=== PATIENT | male | born 1960 | race Caucasian/White ===

== ENCOUNTER → 2018-03-31 13:16 | Outpatient (CLI) | payer OTHER, SELFPAY ==
--- NOTE | 2018-03-31 14:57 | PM.TREADMILL ---
Cardiac Stress Test Report Referral & Results Date Patient Seen: 03/31/18 Requesting provider: Nhan Schumacher Rest ECG: Resting PACs and PVCs including ventricular bigeminy and trigeminy Procedure Note: Today following both written and verbal informed consent the patient was exercised according to a standard Regis protocol patient went for a total of 7 min 4 sec achieving a maximum heart rate of 133 maximum systolic blood pressure of 180. This is approximately 10.1 METS. Exercise was terminated at this point because of severe dyspnea (with normal oxygen saturation). Patient was also given Cardiolite through a previously started Hep-Lock IV by the nuclear licensing engineer approximately 1 minute prior to the cessation of exercise. No ST segment changes were identified. Multiple PACs and PVCs identified. With increased heart rate PVCs became less frequent PACs persisted. There were runs of ventricular bigeminy and trigeminy arrest. Functional aerobic impairment rated about 15% sedentary scale due to dyspnea Normal oxygen saturations Impression: No ECG evidence of ischemia Dysrhythmia as above Limited exercise capacity due to dyspnea Perfusion imaging will be reported separately Please note: Actual ECG tracings can be found in the PACS system.
--- NOTE | 2018-04-02 08:04 | DI.NM.S_ITS ---
DATE OF SERVICE: 03/31/2018 PROCEDURE: Exercise perfusion study. INDICATIONS: Patient has paroxysmal atrial fibrillation, on flecainide, history of LV dysfunction in the past. Exercise perfusion study was scheduled for risk stratification as patient is on flecainide. RADIOPHARMACEUTICAL: 25.3 mCi technetium-99 Myoview IV was injected in stress and 23.2 mCi technetium-99m Myoview IV was injected at rest. CARDIAC STRESS: Patient underwent exercise perfusion study under the supervision of an attending staff. He walked on Regis protocol for 7 minutes 4 seconds and achieved peak heart rate of 133, which was 83% of target heart rate. Baseline blood pressure 118/80. Maximum blood pressure 180/100 with hypertensive blood pressure response. Patient had shortness of breath during exercise. Baseline rhythm was sinus with ventricular bigeminies. During exercise, PVCs disappeared. There were no significant ischemic changes. There were occasional PACs. RAW DATA: There was increased subdiaphragmatic activity. Patient's weight is 297 pounds. GATED STUDY: Resting LV ejection fraction 57% without any significant wall motion abnormalities; however, stress LV ejection fraction was not reliable. Resting end-diastolic volume 152 mL. TIDS ratio 0.90, which is within normal limits. Lung/heart ratio was 0.43, which was within normal limits. MYOCARDIAL PERFUSION SCAN: Stress supine, resting supine images revealed moderate-sized moderately decreased perfusion of inferior wall, inferior apex, and distal inferolateral wall, which got significantly resolved during prone images, suggestive of diaphragmatic tissue attenuation artifact. In prone images, I don't see any convincing ischemia infarction pattern. CONCLUSION: I will call this study likely a normal myocardial perfusion study with evidence of diaphragmatic tissue attenuation artifact which got resolved during prone images. Patient walked on Regis protocol for 7 minutes 4 seconds and achieved 83% of target heart rate with hypertensive blood pressure response. Resting LVS ejection fraction 57%. Had resting ventricular bigeminy which got resolved during exercise. Nhan Hernandez - STUDENT TEACHER/fn/kv doc#: [id number]/job#: [id number] dd: 04/01/2018 12:46:00 dt: 04/01/2018 14:56:00 DICTATING MD/COPIES TO: Maria Elena Evangelista MD COPIES MNE: SIMEON
== END ==
PROVIDERS: PCP Family Medicine; Visit Provider Internal Medicine Cardiovascular Disease
DX: I48.0 Paroxysmal atrial fibrillation (principal); R06.00 Dyspnea, unspecified
CPT/HCPCS: 78452; 93016; 93017; 93018; A9502

== ENCOUNTER 2024-06-27 14:45 | Inpatient (IN) | payer MEDICARE, OTHER, SELFPAY ==
[2024-06-27] VITALS (13 sets, daily range): BP systolic 120–147; BP diastolic 58–82; PULSE 54–70; RESP 16–20; TEMP 36.6–37; O2SAT 94–99; BMI 42.7
[2024-06-27 15:11] LABS: Add Manual Diff / Slide Review NO; Basophils Absolute Auto 100 /uL (0-100); Basophils Percent Auto 0.4 % (0-2); Eosinophils Absolute Auto 0 /uL (0-450); Eosinophils Percent Auto 0.4 % (2-4); Hematocrit 47.9 % (41-53); Hemoglobin 16.3 g/dL (13.5-17.5); Lymphocytes Absolute Auto 1800 /uL (1100-4500); Lymphocytes Percent Auto 13.9 % (25-40); Mean Corpuscular HGB Conc 34.1 % (30-36); Mean Corpuscular Hemoglobin 30.6 PG (26-34); Mean Corpuscular Volume 89.7 fL (80-100); Monocytes Absolute Auto 1000 /uL (0-900); Monocytes Percent Auto 7.3 % (3-14); Neutrophils Absolute Auto 10200 /uL (1500-7000); Platelet Count 206 X10^3/uL (150-400); Red Blood Cell Count 5.33 X10^6/uL (4.5-5.9); White Blood Cell Count 13.1 X10^3/uL (4.5-11.0)
[2024-06-27 15:27] LABS: Alanine Aminotransferase 36 IU/L (<50); Albumin 4.4 g/dL (3.5-5.0); Albumin Globulin Ratio 1.4 (1.0-2.8); Alkaline Phosphatase 87 U/L (38-126); Aspartate Aminotransferase 29 IU/L (17-59); BUN Creatinine Ratio 12.3 (6-22); Bilirubin Total 0.8 mg/dL (0.2-1.3); Blood Urea Nitrogen 14 mg/dL (9-20); Carbon Dioxide 25 mmol/L (22-32); Chloride 104 mmol/L (98-107); Estimated Glomerular Filt Rate > 60 mL/min (>60); Globulin 3.2 g/dL (1.7-4.1); Glucose 98 mg/dL (80-110); HEMOLYSIS < 15 (0-50); Lipase 52 U/L (23-300); Potassium 4.2 mmol/L (3.4-5.1); Sodium 136 mmol/L (137-145); Total Protein 7.6 g/dL (6.3-8.2)
--- NOTE | 2024-06-27 17:41 | DI.CT.S_ITS ---
PROCEDURE: CT ABDOMEN PELVIS W CON INDICATIONS: Right lower quadrant TECHNIQUE: After the administration of intravenous contrast, axial sections acquired from the lung bases to the pubic symphysis. Coronal and sagittal reformats were performed. For radiation dose reduction, the following was used: automated exposure control, adjustment of mA and/or kV according to patient size. COMPARISON: None. FINDINGS: Image quality: Diagnostic. Lower Chest: No significant findings. ABDOMEN: Liver: No solid mass. The liver is enlarged and demonstrates diffuse fatty infiltration. Gallbladder: No radiopaque gallstones or wall thickening. Biliary ducts: No biliary dilation. Pancreas: No ductal dilation. Spleen: Size is within normal limits. Adrenal Glands: No adrenal nodules. Kidneys and Ureters: No hydronephrosis. No solid mass. No complex renal cystic lesion which requires follow up. Bowel and peritoneum: The appendix is abnormal, with a caliber of 13 mm. Surrounding inflammatory change can be seen. There is a potential appendicoliths. No findings of perforation or abscess can be seen. No significant free fluid can be seen. No dilated loops of small bowel are seen. No significant colonic abnormality is seen. Ventral Wall: No significant ventral hernia. Abdominal Nodes: No retroperitoneal or mesenteric adenopathy by size criteria. Vessels: Aorta and inferior vena cava are normal in size. Atherosclerotic calcification is noted. PELVIS: Pelvic Organs: Unremarkable. Bladder: No bladder wall thickening, accounting for underdistention. Pelvic Nodes: No enlarged lymph nodes. Miscellaneous: Mild bilateral fat containing inguinal hernias are seen. Bones: No aggressive osseous abnormality. Age-appropriate bony degenerative changes are seen. IMPRESSION: Acute appendicitis, without findings of perforation or abscess. Additional findings: Enlarged, fatty infiltrated liver Mild bilateral fat containing inguinal hernias Note: Case discussed by telephone with Dr. Albright at 6:43 p.m. [place] time on June 27, 2024. Dictated by: Umer Tam M.D. on 06/27/2024 at 17:40 Approved by: Umer Tam M.D. on 06/27/2024 at 17:43
[2024-06-27] MEDS: MORPHINE 4 MG/ML INJ IV (18:12)
[2024-06-27] MEDS: ONDANSETRON 4 MG/2 ML INJ IV (18:12)
[2024-06-27 18:35] LABS: Bacteria Urine Occasional (0-1); Culture Indicated Urine Cult Not Indicated; Mucus Urine 1+ (Negative); RBC Urine 0-1/HPF (0-5/HPF); Squamous Epithelial Cell Urine 0-1 /HPF (0-5/HPF); Urine Volume 10mL (spun); WBC Urine 0-1/HPF (0-5/HPF)
--- NOTE | 2024-06-27 18:37 | EKG_ITS ---
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
--- NOTE | 2024-06-27 18:50 | ED.GENADULT ---
HPI - General Adult General Chief complaint: Abdominal Pain Stated complaint: abd px Time Seen by Provider: 06/27/24 17:41 Source: patient Mode of arrival: Family Vehicle History of Present Illness HPI narrative: 63-year-old male who is here for evaluation of just over 24 hours of right lower quadrant abdominal pain. No recent travel. No recent antibiotics. No change in bowel habits. No urinary symptoms. No vomiting but has a decreased appetite has had some nausea. Has had subjective fevers as well. Related Data Home Medications Medication Instructions Recorded Confirmed apixaban 5 mg tablet (Eliquis) 5 mg PO BID 06/27/24 06/27/24 carvedilol 6.25 mg tablet 6.25 mg PO BID 06/27/24 06/27/24 empagliflozin 10 mg tablet 10 mg PO DAILY 06/27/24 06/27/24 (Jardiance) hydrochlorothiazide 12.5 mg capsule 12.5 mg PO QAM 06/27/24 06/27/24 simvastatin 20 mg tablet 20 mg PO DAILY 06/27/24 06/27/24 sotalol 160 mg tablet 160 mg PO BID 06/27/24 06/27/24 valsartan 80 mg tablet 80 mg PO BID 06/27/24 06/27/24 Allergies Allergy/AdvReac Type Severity Reaction Status Date / Time No Known Drug Allergies Allergy Verified 06/27/24 17:44 Review of Systems Review of Systems ROS Unobtainable: All systems reviewed & are unremarkable except as noted in HPI and below Patient History 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 Social History alcohol intake: never Exam Initial Vital Signs Initial Vital Signs: Vital Signs Temperature 98.6 F 06/27/24 14:47 Pulse Rate 70 06/27/24 14:47 Respiratory Rate 16 06/27/24 14:47 Blood Pressure 147/82 H 06/27/24 14:47 Pulse Oximetry 97 06/27/24 14:47 Oxygen Delivery Method Room Air 06/27/24 14:47 Const General: cooperative, comfortable and No ill appearing HENMT Head: normal to inspection and normocephalic Resp Effort & Inspection: normal respiratory effort Auscultation: clear to auscultation bilaterally Cardio Rate: regular rate Rhythm: regular rhythm GI Inspection: non-distended Palpation: soft, No firm, No guarding and tender Neuro General: patient alert, patient awake and moves all extremities Extrem General: capillary refill normal Course Orders Ordered: ED Orders 06/27/24 17:10 Urine Microscopic Stat 06/27/24 17:41 CT abdomen pelvis w con Stat 06/27/24 18:52 Consult to General Surgery Stat Acetaminophen (Acetaminophen 325 Mg Tablet) 650 mg PO Q6H [facility] Last Admin: 06/27/24 21:37 Dose: 650 mg Documented By: MS Al Hydrox/Mg Hydrox/Simethicone (Mag Hydrox/Alum/Simeth 30 Ml Udc) 30 ml PO Q6HR PRN PRN Reason: Dyspepsia Atorvastatin Calcium (Atorvastatin 20 Mg Tablet) 20 mg PO BEDTIME [facility] Last Admin: 06/27/24 21:37 Dose: 20 mg Documented By: MS Carvedilol (Carvedilol 3.125 Mg Tablet) 6.25 mg PO BID [facility] Last Admin: 06/27/24 21:38 Dose: 6.25 mg Documented By: MS Enoxaparin Sodium (Enoxaparin 40 Mg/0.4 Ml Syringe) 40 mg SUBCUT DAILY [facility] Hydrochlorothiazide (Hydrochlorothiazide 25 Mg Tablet) 12.5 mg PO DAILY [facility] Sodium Chloride (Normal Saline 0.9%) 1,000 mls @ 150 mls/hr IV CONT [facility] Last Admin: 06/27/24 21:23 Dose: 150 mls/hr Documented By: MS Piperacillin Sod/Tazobactam (Sod 3.375 gm/ Sodium Chloride) 100 mls @ 25 mls/hr IV Q8H [facility] Magnesium Hydroxide (Magnesium Hydroxide 30 Ml Udc) 30 ml PO DAILY PRN PRN Reason: Constipation Naloxone HCl (Naloxone 0.4 Mg/Ml Vial) 0.2 mg IV Q2MIN PRN PRN Reason: Opiate Reversal Ondansetron HCl (Ondansetron 4 Mg/2 Ml Inj) 4 mg IV NOW PRN PRN Reason: Nausea And Vomiting Last Admin: 06/27/24 18:12 Dose: 4 mg Documented By: Ondansetron HCl (Ondansetron 4 Mg Odt) 4 mg PO NOW PRN PRN Reason: Nausea And Vomiting Ondansetron HCl (Ondansetron 4 Mg/2 Ml Inj) 4 mg IV Q8HR PRN PRN Reason: Nausea And Vomiting Oxycodone HCl (Oxycodone Ir 5 Mg Tablet) 5 mg PO Q3H PRN PRN Reason: Pain, Moderate (4-6) Oxycodone HCl (Oxycodone Ir 10 Mg Tablet) 10 mg PO Q3H PRN PRN Reason: Pain, Severe (7-10) Pantoprazole Sodium (Pantoprazole Dr 20 Mg Tablet) 20 mg PO 0600 [facility] Sotalol HCl (Sotalol 80 Mg Tablet) 120 mg PO BID [facility] Last Admin: 06/27/24 21:38 Dose: 120 mg Documented By: Valsartan (Valsartan 80 Mg Tablet) 80 mg PO BID [facility] Last Admin: 06/27/24 21:37 Dose: 80 mg Documented By: MS Discontinued Medications Piperacillin Sod/Tazobactam (Sod 4.5 gm/ Sodium Chloride) 100 mls @ 200 mls/hr IV NOW ONE Stop: 06/27/24 18:51 Last Infusion: 06/27/24 19:45 Dose: Infused Documented By: Admin: 06/27/24 19:05 Dose: 200 mls/hr Documented By: CHAYO Morphine Sulfate (Morphine 4 Mg/Ml Inj) 4 mg IV NOW ONE Stop: 06/27/24 18:00 Last Admin: 06/27/24 18:12 Dose: 4 mg Documented By: Morphine Sulfate (Morphine 4 Mg/Ml Inj) 3 mg IV Q2HR PRN PRN Reason: BREAKTHROUGH PAIN Vital Signs Vital signs: Vital Signs - 8 hr 06/27/24 17:33 06/27/24 17:34 06/27/24 17:34 Pulse Rate 58 L Blood Pressure 137/70 Pulse Oximetry 97 97 06/27/24 17:41 06/27/24 17:41 06/27/24 18:00 Pulse Rate 58 L 58 L Blood Pressure 138/65 Pulse Oximetry 96 97 06/27/24 18:30 Pulse Rate 57 L Blood Pressure Pulse Oximetry 94 Medical Decision Making Lab Data Lab results reviewed: Yes I reviewed the patient's lab results. 06/27/24 15:02 06/27/24 15:02 Labs: Lab Results 06/27/24 06/27/24 Range/Units 15:02 17:10 WBC 13.1 H (4.5-11.0) X10^3/uL RBC 5.33 (4.5-5.9) X10^6/uL Hgb 16.3 (13.5-17.5) g/dL Hct 47.9 (41-53) % MCV 89.7 (80-100) fL MCH 30.6 (26-34) PG MCHC 34.1 (30-36) % RDW 14.0 (11.6-14.8) % Plt Count 206 (150-400) X10^3/uL Neut % (Auto) 78.0 H (50-75) % Lymph % (Auto) 13.9 L (25-40) % [place] % (Auto) 7.3 (3-14) % Eos % (Auto) 0.4 L (2-4) % Baso % (Auto) 0.4 (0-2) % Neut # (Auto) 99776 H (3595-0331) /uL Lymph # (Auto) 1800 (2441-3886) /uL [place] # (Auto) 1000 H (0-900) /uL Eos # (Auto) 0 (0-450) /uL Baso # (Auto) 100 (0-100) /uL Sodium 136 L (137-145) mmol/L Potassium 4.2 (3.4-5.1) mmol/L Chloride 104 (98-107) mmol/L Carbon Dioxide 25 (22-32) mmol/L BUN 14 (9-20) mg/dL Creatinine 1.14 (0.66-1.25) mg/dL Estimated GFR > 60 (>60) mL/min BUN/Creatinine Ratio 12.3 (6-22) Glucose 98 (80-110) mg/dL Calcium 9.0 (8.4-10.2) mg/dL Total Bilirubin 0.8 (0.2-1.3) mg/dL AST 29 (17-59) IU/L ALT 36 (<50) IU/L Alkaline Phosphatase 87 (38-126) U/L Total Protein 7.6 (6.3-8.2) g/dL Albumin 4.4 (3.5-5.0) g/dL Globulin 3.2 (1.7-4.1) g/dL Albumin/Globulin Ratio 1.4 (1.0-2.8) Lipase 52 (23-300) U/L Urine RBC 0-1/hpf (0-5/HPF) Urine WBC 0-1/hpf (0-5/HPF) Ur Squamous Epith Cells 0-1 /hpf (0-5/HPF) Urine Bacteria Occasional (0-1) (None) Urine Mucus 1+ H (Negative) Ur Culture Indicated? Cult not indicated Vol Urine Centrifuged 10ml (spun) Urine Dip Bedside Urine Glucose 1000 mg/dl Bedside Urine Bilirubin - Negative Bedside Urine Ketone - Negative Urine Specific [place] 1.020 Bedside Urine Occult Blood ++ Bedside Urine pH 5.5 Bedside Urine Protein + 30 Bedside Urine Urobilinogen - Negative Bedside Urine Nitrite - Negative Bedside Urine Leukocytes - Negative Esterase Point of care testing: Urine Dip Bedside Urine Glucose 1000 mg/dl Bedside Urine Bilirubin - Negative Bedside Urine Ketone - Negative Urine Specific [place] 1.020 Bedside Urine Occult Blood ++ Bedside Urine pH 5.5 Bedside Urine Protein + 30 Bedside Urine Urobilinogen - Negative Bedside Urine Nitrite - Negative Bedside Urine Leukocytes - Negative Esterase Imaging Data CT scan - abdomen/pelvis: Radiologist's Impression: PROCEDURE: CT ABDOMEN PELVIS W CON INDICATIONS: Right lower quadrant TECHNIQUE: After the administration of intravenous contrast, axial sections acquired from the lung bases to the pubic symphysis. Coronal and sagittal reformats were performed. For radiation dose reduction, the following was used: automated exposure control, adjustment of mA and/or kV according to patient size. COMPARISON: None. FINDINGS: Image quality: Diagnostic. Lower Chest: No significant findings. ABDOMEN: Liver: No solid mass. The liver is enlarged and demonstrates diffuse fatty infiltration. Gallbladder: No radiopaque gallstones or wall thickening. Biliary ducts: No biliary dilation. Pancreas: No ductal dilation. Spleen: Size is within normal limits. Adrenal Glands: No adrenal nodules. Kidneys and Ureters: No hydronephrosis. No solid mass. No complex renal cystic lesion which requires follow up. Bowel and peritoneum: The appendix is abnormal, with a caliber of 13 mm. Surrounding inflammatory change can be seen. There is a potential appendicoliths. No findings of perforation or abscess can be seen. No significant free fluid can be seen. No dilated loops of small bowel are seen. No significant colonic abnormality is seen. Ventral Wall: No significant ventral hernia. Abdominal Nodes: No retroperitoneal or mesenteric adenopathy by size criteria. Vessels: Aorta and inferior vena cava are normal in size. Atherosclerotic calcification is noted. PELVIS: Pelvic Organs: Unremarkable. Bladder: No bladder wall thickening, accounting for underdistention. Pelvic Nodes: No enlarged lymph nodes. Miscellaneous: Mild bilateral fat containing inguinal hernias are seen. Bones: No aggressive osseous abnormality. Age-appropriate bony degenerative changes are seen. IMPRESSION: Acute appendicitis, without findings of perforation or abscess. Additional findings: Enlarged, fatty infiltrated liver Mild bilateral fat containing inguinal hernias Note: Case discussed by telephone with Dr. Albright at 6:43 p.m. [place] time on June 27, 2024. ECG Data Attestation: I personally reviewed and interpreted this ECG as follows: Interpretation: Sinus rhythm Ventricular rate of 58 Artifact noted V1 V2 V3 No [address] T wave changes MDM Narrative Medical decision making narrative: CT scan shows appendicitis. He does have a leukocytosis. He was on Eliquis for his atrial fibrillation and is last dose was the past 8 hours. He was also had something to drink within the past couple hours as well. Patient was started on antibiotics. Discussed the case with Dr. Sanchez on-call for General surgery who evaluated the patient in the emergency department. We will admit for further evaluation and treatment. Discussed the need for admission with the patient. We did discuss the CT results. He expressed understanding and agreement as well. Discharge Plan Departure Patient Disposition: Admitted as Observation Clinical Impression: Acute appendicitis Qualifiers: Acute appendicitis type: with localized peritonitis Appendicitis gangrene presence: without gangrene Appendicitis perforation presence: without perforation Appendicitis abscess presence: without abscess Qualified Code(s): K35.30 - Acute appendicitis with localized peritonitis, without perforation or gangrene Admit Date/Time: 06/27/24 18:52 Admit Provider: Antwon Sanchez
[2024-06-27] MEDS: PIPERACILLIN/TAZO 4.5 GM in SODIUM CHLORIDE 0.9% 100 ML IV (19:05)
--- NOTE | 2024-06-27 19:17 | PM.HP.1 ---
History of Present Illness History of Present Illness Date Patient Seen: 06/27/24 Time Patient Seen: 19:18 Date of Onset of Symptoms: 06/27/24 Chief complaint: abd px Narrative: 63-year-old white male with atrial fibrillation on Eliquis who has right lower quadrant pain. Presents to the ER found to have leukocytosis a CT scan showing acute appendicitis with a fecalith. He took a dose of Eliquis today and last had something to eat or drink around 3:00 p.m.. 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 Comment: Hypertension, atrial fibrillation, hyperlipidemia Previous cardiac ablation Meds Home Medications and Allergies Allergies Allergy/AdvReac Type Severity Reaction Status Date / Time No Known Drug Allergies Allergy Verified 06/27/24 17:44 Review of Systems Review of Systems ROS: Yes All systems reviewed with the patient and are negative except as otherwise documented Exam Vital Signs (past 8 hours): - 06/27/24 14:47 Temperature 98.6 F Pulse Rate 70 Respiratory Rate 16 Blood Pressure 147/82 H Pulse Oximetry 97 Oxygen Delivery Method Room Air Oxygen Delivery Method Room Air Narrative Exam Narrative: Gen: NAD, sitting comfortably in bed, appears well HEENT: Sclera are anicteric, head is normocephalic and atraumatic, trachea is midline. CV: RRR, no JVD Resp: clear to auscultation bilaterally, equal chest wall movement bilaterally Abd: soft, tender to palpation right lower quadrant, normoactive bowel sounds Ext: no edema, full range of motion Neuro: Cranial nerves II-XII grossly intact, no focal deficits Skin: No erythema or ecchymosis Objective Labs 06/27/24 15:02 06/27/24 15:02 Labs: Laboratory Results - last 24 hr 06/27/24 06/27/24 15:02 17:10 WBC 13.1 H RBC 5.33 Hgb 16.3 Hct 47.9 MCV 89.7 MCH 30.6 MCHC 34.1 RDW 14.0 Plt Count 206 Neut % (Auto) 78.0 H Lymph % (Auto) 13.9 L [place] % (Auto) 7.3 Eos % (Auto) 0.4 L Baso % (Auto) 0.4 Neut # (Auto) 96489 H Lymph # (Auto) 1800 [place] # (Auto) 1000 H Eos # (Auto) 0 Baso # (Auto) 100 Sodium 136 L Potassium 4.2 Chloride 104 Carbon Dioxide 25 BUN 14 Creatinine 1.14 Estimated GFR > 60 BUN/Creatinine Ratio 12.3 Glucose 98 Calcium 9.0 Total Bilirubin 0.8 AST 29 ALT 36 Alkaline Phosphatase 87 Total Protein 7.6 Albumin 4.4 Globulin 3.2 Albumin/Globulin Ratio 1.4 Lipase 52 Urine RBC 0-1/hpf Urine WBC 0-1/hpf Ur Squamous Epith Cells 0-1 /hpf Urine Bacteria Occasional (0-1) Urine Mucus 1+ H Ur Culture Indicated? 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 Explained to the patient that with the presence of a fecalith on CT scan there was a 30% chance of failure of antibiotic management. Given that he took his Eliquis today, we will do antibiotics until improvement. If he has worsening symptoms or does not improve, we can take out his appendix on Friday. 2. Continue home medications except for his anticoagulation Time-Based Coding :: [TOTAL MINUTES] spent with patient and on the chart (including review of chart, obtaining history, exam, reviewing outside data, placing orders, documenting exam and treatment plan, and counseling patient) on [DATE].
[2024-06-27] MEDS: SODIUM CHLORIDE 0.9% 1,000 ML 150 ML IV (21:23)
[2024-06-27] MEDS: ATORVASTATIN 20 MG TABLET PO (21:37)
[2024-06-27] MEDS: VALSARTAN 80 MG TABLET PO (21:37)
[2024-06-27] MEDS: ACETAMINOPHEN 325 MG TABLET 650 MG PO (21:37)
[2024-06-27] MEDS: SOTALOL 80 MG TABLET 120 MG PO (21:38)
[2024-06-27] MEDS: carvediloL 3.125 MG TABLET 6.25 MG PO (21:38)
[2024-06-28] VITALS (8 sets, daily range): BP systolic 109–124; BP diastolic 60–85; PULSE 51–88; RESP 16–24; TEMP 35.6–36.8; O2SAT 94–97
[2024-06-28] MEDS: PIPERACILLIN/TAZO 3.375 GM in SODIUM CHLORIDE 0.9% 100 ML IV ×4 (00:36→23:28)
[2024-06-28] MEDS: SODIUM CHLORIDE 0.9% 1,000 ML 150 ML IV ×2 (03:34→23:29)
[2024-06-28] MEDS: OXYCODONE IR 10 MG TABLET PO ×2 (03:41→06:45)
[2024-06-28 05:38] LABS: Add Manual Diff / Slide Review NO; Basophils Absolute Auto 100 /uL (0-100); Basophils Percent Auto 0.5 % (0-2); Eosinophils Absolute Auto 100 /uL (0-450); Eosinophils Percent Auto 0.6 % (2-4); Hematocrit 43.2 % (41-53); Hemoglobin 14.9 g/dL (13.5-17.5); Lymphocytes Absolute Auto 1700 /uL (1100-4500); Lymphocytes Percent Auto 16.2 % (25-40); Mean Corpuscular HGB Conc 34.5 % (30-36); Mean Corpuscular Hemoglobin 31.1 PG (26-34); Mean Corpuscular Volume 90.3 fL (80-100); Monocytes Absolute Auto 800 /uL (0-900); Monocytes Percent Auto 7.6 % (3-14); Neutrophils Absolute Auto 8100 /uL (1500-7000); Neutrophils Percent Auto 75.1 % (50-75); Platelet Count 164 X10^3/uL (150-400); Red Blood Cell Count 4.78 X10^6/uL (4.5-5.9); Red Cell Distribution Width 13.6 % (11.6-14.8); White Blood Cell Count 10.8 X10^3/uL (4.5-11.0)
[2024-06-28 05:45] LABS: INR 1.4 (0.9-1.3); Prothrombin Time 16.1 SECONDS (9.4-12.5)
[2024-06-28 05:51] LABS: BUN Creatinine Ratio 11.6 (6-22); Blood Urea Nitrogen 17 mg/dL (9-20); Calcium 8.2 mg/dL (8.4-10.2); Carbon Dioxide 27 mmol/L (22-32); Chloride 103 mmol/L (98-107); Estimated Glomerular Filt Rate 53 mL/min (>60); Glucose 96 mg/dL (80-110); HEMOLYSIS < 15 (0-50); Potassium 3.8 mmol/L (3.4-5.1); Sodium 135 mmol/L (137-145)
[2024-06-28] MEDS: PANTOPRAZOLE DR 20 MG TABLET PO (06:45)
[2024-06-28] MEDS: ACETAMINOPHEN 325 MG TABLET 650 MG PO ×3 (06:45→18:30)
[2024-06-28] MEDS: VALSARTAN 80 MG TABLET PO ×2 (08:06→21:07)
[2024-06-28] MEDS: hydroCHLOROthiazide 25 MG TABLET 12.5 MG PO (08:06)
[2024-06-28] MEDS: SOTALOL 80 MG TABLET 120 MG PO ×2 (08:07→21:07)
[2024-06-28] MEDS: carvediloL 3.125 MG TABLET 6.25 MG PO ×2 (08:07→21:06)
[2024-06-28] MEDS: ENOXAPARIN 40 MG/0.4 ML SYRINGE SUBCUT ×2 (08:07→21:06)
--- NOTE | 2024-06-28 12:18 | PM.PN.1 ---
Subjective Subjective Date Patient Seen: 06/28/24 Time Patient Seen: 12:18 Interval history: Patient denies fevers or chills, nausea or vomiting. Still has slight pain in the right lower quadrant. Exam Vital Signs (past 8 hours): - 06/28/24 08:00 06/28/24 08:07 Temperature 98.1 F Pulse Rate 56 L Respiratory Rate 20 Blood Pressure 122/85 120/69 Pulse Oximetry 97 Oxygen Flow Rate 0 Oxygen Delivery Method Room Air Oxygen Flow Rate 0 Narrative Exam Narrative: Gen: NAD, sitting comfortably in bed, appears well HEENT: Sclera are anicteric, head is normocephalic and atraumatic, trachea is midline. CV: RRR, no JVD Resp: clear to auscultation bilaterally, equal chest wall movement bilaterally Abd: soft, mildly tender right lower quadrant,, normoactive bowel sounds Ext: no edema, full range of motion Neuro: Cranial nerves II-XII grossly intact, no focal deficits Skin: No erythema or ecchymosis Objective Labs 06/28/24 05:22 06/28/24 05:22 Labs: Laboratory Results - last 24 hr 06/27/24 06/27/24 06/28/24 15:02 17:10 05:22 WBC 13.1 H 10.8 RBC 5.33 4.78 Hgb 16.3 14.9 Hct 47.9 43.2 MCV 89.7 90.3 MCH 30.6 31.1 MCHC 34.1 34.5 RDW 14.0 13.6 Plt Count 206 164 Neut % (Auto) 78.0 H 75.1 H Lymph % (Auto) 13.9 L 16.2 L [place] % (Auto) 7.3 7.6 Eos % (Auto) 0.4 L 0.6 L Baso % (Auto) 0.4 0.5 Neut # (Auto) 45534 H 8100 H Lymph # (Auto) 1800 1700 [place] # (Auto) 1000 H 800 Eos # (Auto) 0 100 Baso # (Auto) 100 100 PT 16.1 H INR 1.4 H Sodium 136 L 135 L Potassium 4.2 3.8 Chloride 104 103 Carbon Dioxide 25 27 BUN 14 17 Creatinine 1.14 1.46 H Estimated GFR > 60 53 L BUN/Creatinine Ratio 12.3 11.6 Glucose 98 96 Calcium 9.0 8.2 L Total Bilirubin 0.8 AST 29 ALT 36 Alkaline Phosphatase 87 Total Protein 7.6 Albumin 4.4 Globulin 3.2 Albumin/Globulin Ratio 1.4 Lipase 52 Urine RBC 0-1/hpf Urine WBC 0-1/hpf Ur Squamous Epith Cells 0-1 /hpf Urine Bacteria Occasional (0-1) Urine Mucus 1+ H Ur Culture Indicated? 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 Tomorrow will be 48 hours since his last dose of Eliquis. Discussed with patient at 30% chance of readmission due to appendicitis with a fecalith. He states that given his need for blood thinners that he would prefer to have his appendix removed on this hospitalization. Risks, benefits, alternatives were explained to the patient including risk of infection and abscess requiring percutaneous drainage. Patient agrees to proceed with laparoscopic appendectomy. Time-Based Coding :: [TOTAL MINUTES] spent with patient and on the chart (including review of chart, obtaining history, exam, reviewing outside data, placing orders, documenting exam and treatment plan, and counseling patient) on [DATE].
--- NOTE | 2024-06-28 15:26 | CM.DANOTE ---
Patient is a 63 yo male who was admitted INPT Status on 06/27/24 for Acute appendicitis. Pt has MCR and PRE PREFERRED for insurance and his PCP is not listed. EMR was reviewed. Per MD, pt with hx of AFIB and anticoagulants and conservative tx with IV-Abx but now pt decision for lap appe for acute appendicitis. Patient resides in [place] with spouse and is independent at baseline and no hx of prior admissions. Due to triage needs and plan of surgery, no bedside assessment completed today. Plan: SW to follow closely for d/c discussion bedside with pt post surg to determine any discharge planning needs and confirm safe to return home. MANI Gloria Discharge Planning/Care Management CM Discharge Assessment Start: 06/28/24 15:25 Freq: Status: Active Protocol: Document 06/28/24 15:25 BF (Rec: 06/28/24 15:26 BF [id number]) Discharge Planning Assessment Assigned Rn Registry MANI Fang DPOA/Assigned Designee Name spouse Advance Directives? No Advance Directives on File No History Provided By Patient,Medical Record Has Patient been admitted in last 30 No days? Prior Living Arrangements House Household Members spouse Type of transporation used prior to Drives own vehicle admit Independent with ADL's Yes Is patient alert and oriented? Yes Caregiver for Another No Comment Pending progress post lap appe Barriers to Discharge No Discharge Plan Home Transportation Arrangement Likely family to transport at d/c Additional Comment Pending progress post surgery Whiteboard Updated in Patient Room with Yes name and ext. # of Rn Registry Review Status In Process Please Provide Date Initial DC 06/28/24 Assessment Was Performed Next Review Type Continued Stay Review
[2024-06-28] MEDS: ATORVASTATIN 20 MG TABLET PO (21:05)
[2024-06-29] VITALS (16 sets, daily range): BP systolic 102–137; BP diastolic 50–81; PULSE 55–63; RESP 11–20; TEMP 36.2–37.2; O2SAT 93–99; BMI 42.7
--- NOTE | 2024-06-29 | PATH_ITS ---
[facility] Accession Number: [id number] No. of containers..01 Tissue . 01 Material submitted: . appendix - APPENDIX . 01 Diagnosis: APPENDIX, APPENDECTOMY: Acute suppurative and necrotizing appendicitis and acute serositis. Negative for malignancy. LUIS FERNANDO 07/01/2024 1543 Local . 01 Electronically signed: . Russ Del Valle MD, Pathologist NPI- [id number] . 01 Gross description: . Received in formalin with two identifiers and appendix, is a bocanegra vermiform appendix 7.9 cm in length and averaging 0.8 cm in diameter. The serosa is bocanegra to greene with adherent material consistent with exudate. The serosa is greene and thinned across an area at the distal tip measuring 3.4 cm in length. The margin is inked blue and sectioning reveals the samson to range from less than 0.1 to 0.3 cm thick with the thinner samson located at the dital tip. No lesions or distinct perforations are identified. Advertising Photographer sections to inclue the margin, one-half of the bisected distal tip, and crossections are submitted in cassette A1. ([id number]) /LUIS FERNANDO 06/30/2024 1111 Local . 01 Pathologist provided ICD-10: K35.30 . 01 CPT . 649842 Specimen Comment: A courtesy copy of this report has been sent to [facility] Pathology Performed at: [address] [address], [place], [place] [id number] MD Clifford Grewal MD Phone: [phone]
[2024-06-29] MEDS: OXYCODONE IR 10 MG TABLET PO (05:09)
[2024-06-29] MEDS: PANTOPRAZOLE DR 20 MG TABLET PO (05:10)
[2024-06-29 06:00] LABS: Add Manual Diff / Slide Review NO; Basophils Absolute Auto 0 /uL (0-100); Basophils Percent Auto 0.3 % (0-2); Eosinophils Absolute Auto 100 /uL (0-450); Eosinophils Percent Auto 1.1 % (2-4); Hematocrit 39.6 % (41-53); Hemoglobin 13.5 g/dL (13.5-17.5); Lymphocytes Absolute Auto 1500 /uL (1100-4500); Lymphocytes Percent Auto 15.8 % (25-40); Mean Corpuscular HGB Conc 34.2 % (30-36); Mean Corpuscular Hemoglobin 31.2 PG (26-34); Mean Corpuscular Volume 91.2 fL (80-100); Monocytes Absolute Auto 600 /uL (0-900); Monocytes Percent Auto 6.3 % (3-14); Neutrophils Absolute Auto 7500 /uL (1500-7000); Neutrophils Percent Auto 76.5 % (50-75); Platelet Count 157 X10^3/uL (150-400); Red Blood Cell Count 4.34 X10^6/uL (4.5-5.9); Red Cell Distribution Width 13.7 % (11.6-14.8); White Blood Cell Count 9.7 X10^3/uL (4.5-11.0)
[2024-06-29 06:11] LABS: BUN Creatinine Ratio 10.2 (6-22); Blood Urea Nitrogen 13 mg/dL (9-20); Carbon Dioxide 26 mmol/L (22-32); Chloride 102 mmol/L (98-107); Estimated Glomerular Filt Rate > 60 mL/min (>60); Glucose 85 mg/dL (80-110); HEMOLYSIS < 15 (0-50); Potassium 3.6 mmol/L (3.4-5.1); Sodium 135 mmol/L (137-145)
[2024-06-29] MEDS: SODIUM CHLORIDE 0.9% 1,000 ML 150 ML IV (06:32)
[2024-06-29] MEDS: PIPERACILLIN/TAZO 3.375 GM in SODIUM CHLORIDE 0.9% 100 ML IV (08:55)
[2024-06-29] MEDS: hydroCHLOROthiazide 25 MG TABLET 12.5 MG PO (10:20)
[2024-06-29] MEDS: SOTALOL 80 MG TABLET 120 MG PO (10:20)
[2024-06-29] MEDS: VALSARTAN 80 MG TABLET PO (10:20)
[2024-06-29] MEDS: carvediloL 3.125 MG TABLET 6.25 MG PO (10:20)
--- NOTE | 2024-06-29 13:20 | PM.PREOP ---
Pre-operative Note COVID-19 COVID-19 status: Not tested Interval Note History & Physical reviewed/Exam performed by Physician: Yes Changes to H&P: No H&P completed within 30 days and has changed as indicated here:: No changes. It has been 48 hours since patient's blood thinners. Wishes to proceed with laparoscopic appendectomy. ASA Class (for procedural sedation): III
[2024-06-29] MEDS: LACTATED RINGERS 1,000 ML 42 ML IV ×2 (13:49→14:36)
--- NOTE | 2024-06-29 13:58 | SUR.OPER ---
Supine on padded OR bed, head on pillow, safety belt at thigh, left arm padded and tucked at side. Right arm secured on padded arm board <90 degrees abduction. Legs uncrossed. Tape over blanket to secure lower legs.
--- NOTE | 2024-06-29 14:02 | CM.DPC ---
DCP Cont: Per Surgeon, pt off his anticoagulants for 48 hours and now to go to the OR for surgical Lap Appe this afternoon. Per RN, pt taken off the floor to pre-op around 1300. Plan: SW to follow closely in the AM for progress post surgery today and determine any d/c planning needs and confirm safe discharge home with spouse when stable. MANI Gloria
--- NOTE | 2024-06-29 14:20 | PM.OP.1 ---
Operative Date/Time/Diagnoses Date of procedure: 06/29/24 Time of procedure: 14:20 Pre-op diagnosis: Acute appendicitis Post-op diagnosis: same Procedure & Clinicians Procedure: Laparoscopic appendectomy Same procedure as scheduled: Yes Indications: Acute appendicitis on Eliquis. Held the Eliquis for 2 days prior to laparoscopic appendectomy. Surgeon: Antwon Sanchez Click Yes if Unassisted: Yes Anesthesia Type: General Operative Notes Findings: Adhesions of the ileum to the appendix, tip of the appendix was necrotic but not perforated. Closure Type: primary Specimen(s): other (Appendix) Estimated Blood Loss (mL): 5 Procedure in detail: Patient was brought to the operating room suite after consent was obtained. Time-out was performed. Patient was prepped and draped in the supine position with the left arm tucked at the side. Total of 30 mL of 0.5% Marcaine were infiltrated in all trocar sites. 5 mm optical trocar was then placed in the left upper quadrant. The abdomen was inspected. The terminal ileum was adherent to the appendix. Additional 12 mm trocars placed in the infraumbilical position. 5 mm trocar placed in the suprapubic region. Blunt dissection was used to remove the terminal ileum from the appendix. The tip of the appendix was necrotic but not perforated. [place] dissector was used to make a plane at the base of the appendix. White load was fired across the mesoappendix. There was good hemostasis. 2 x 45 mm blue loads were used to transect the the appendix with a section of cecum due to a widened and inflamed base. There was no spillage of stool or pus. Good hemostasis at the end of the case. The appendix was placed in a bag and brought out through the umbilical trocar. The umbilical trocar was closed with an 0 Vicryl on a Milan-Kaylee suture Passer. Pneumoperitoneum was relieved. Skin was closed with 4 Monocryl and Dermabond. Complications: none Post-operative Condition: stable Disposition: PACU Plan for aftercare: home
--- NOTE | 2024-06-29 14:30 | P.DS_ITS ---
History of Present Illness History of Present Illness Date Patient Seen: 06/29/24 Time Patient Seen: 14:30 Chief complaint: abd px Narrative: 63-year-old white male with atrial fibrillation on Eliquis who has right lower quadrant pain. Presents to the ER found to have leukocytosis a CT scan showing acute appendicitis with a fecalith. He took a dose of Eliquis today and last had something to eat or drink around 3:00 p.m.. Discharge Providers Provider Date of admission: 06/27/24 18:52 Discharge Date: 06/29/24 Primary care physician: Doctor John MD Consults: 06/27/24 18:52 Consult to General Surgery Stat Comment: Consulting Provider: Antwon Sanchez Reason for consultation: Acute appendicitis Has provider been notified: Yes Discharge provider: Antwon Sanchez MD Summary Hospital Course Discharge Diagnosis: Acute appendicitis, long-term use of anticoagulant Hospital Course: Patient was admitted with acute appendicitis given IV antibiotics and given the option to go home with oral antibiotics or to stay off anticoagulation have his appendix removed. He has ascites stay for 2 days and have his appendix removed prior to discharge. Patient underwent laparoscopic appendectomy. Status at Discharge Cognitive/behavioral status at discharge: oriented Functional status at discharge: independent ambulation Overall status at discharge: patient is back to baseline Time Spent with Patient Time spent: Less than 30 minutes Exam Vital Signs (past 8 hours): - 06/29/24 08:00 06/29/24 10:20 06/29/24 12:00 Temperature 97.2 F L 97.3 F L Pulse Rate 56 L 60 57 L Respiratory Rate 18 16 Blood Pressure 124/67 121/81 122/66 Pulse Oximetry 96 96 Oxygen Delivery Method Oxygen Flow Rate 0 0 06/29/24 13:17 Temperature 98.1 F Pulse Rate 55 L Respiratory Rate 18 Blood Pressure 129/65 Pulse Oximetry 97 Oxygen Delivery Method Room Air Oxygen Flow Rate Oxygen Delivery Method Room Air Oxygen Flow Rate 0 Objective Labs 06/29/24 05:07 06/29/24 05:07 Labs: Laboratory Results - last 24 hr 06/29/24 05:07 WBC 9.7 RBC 4.34 L Hgb 13.5 Hct 39.6 L MCV 91.2 MCH 31.2 MCHC 34.2 RDW 13.7 Plt Count 157 Neut % (Auto) 76.5 H Lymph % (Auto) 15.8 L [place] % (Auto) 6.3 Eos % (Auto) 1.1 L Baso % (Auto) 0.3 Neut # (Auto) 7500 H Lymph # (Auto) 1500 [place] # (Auto) 600 Eos # (Auto) 100 Baso # (Auto) 0 Sodium 135 L Potassium 3.6 Chloride 102 Carbon Dioxide 26 BUN 13 Creatinine 1.27 H Estimated GFR > 60 BUN/Creatinine Ratio 10.2 Glucose 85 Calcium 8.0 L PFSH Medical History Atrial fibrillation Hypertension [facility] current use of anticoagulant Social History household members: spouse Smoking Status: Never smoker alcohol intake: never Discharge Plan Discharge Plan Patient Disposition: Home Discharge orders & Medications Prescriptions: New oxycodone 5 mg tablet 5 mg PO Q6H PRN (Reason: pain) Qty: 7 0RF Continued carvedilol 6.25 mg tablet 6.25 mg PO BID hydrochlorothiazide 12.5 mg capsule 12.5 mg PO QAM Jardiance 10 mg tablet 10 mg PO DAILY simvastatin 20 mg tablet 20 mg PO DAILY sotalol 160 mg tablet 160 mg PO BID Eliquis 5 mg Tablet 5 mg PO BID valsartan 80 mg Tablet 80 mg PO BID Follow up/Referrals: Doctor Lopez MD [Primary Care Provider] - Diet/Activity/Treatments Diet: Regular Skin/Wound/Dressing Care Report to your healthcare provider any signs of infection, such as:: chills, fever, night sweats, increased pain, unusual drainage and unusual redness Visit Report/Discharge Packet Instructions: DI for an Appendectomy Stand Alone Forms: Patient Portal/API, Stroke Signs & Symptoms Discharge Data Primary Care Provider: Doctor John
[2024-06-29] MEDS: ONDANSETRON 4 MG/2 ML INJ IV (14:50)
[2024-06-29] MEDS: OXYCODONE IR 5 MG TABLET PO (14:50)
--- NOTE | 2024-06-29 15:19 | PC.NURSE ---
Addendum entered by Zachariah An R.N. 06/29/24 16:09: Clarified with Dr. Sanchez patient is ok to discharge home tonight (dc order was cancelled in error upon transfer from PACU). Original Note: Patient brought back to room 211 from PACU. Call light placed within reach. Patient denies need to urinate at this time. VSS on 2L o2 upon arrival. Patient requesting gingerale. Continue to monitor.
--- NOTE | 2024-06-29 17:58 | PC.NURSE ---
Patient eager for discharge to home, vss. 3 laps sites to abdomen with skin glue intact and without signs of bleeding or drainage noted. Patient was up to void in bathroom without difficulty. Tolerated dinner. Discharge instructions reviewed with patient and his , he states understanding and has no further questions or concerns at this time. Escorted out via wheelchair with all his belongings to discharge to home with his .
== END 2024-06-29 18:01 | disposition home or self-care (01) | DRG 399 ==
LOC: ED 17:56 → AC 18:52
PROVIDERS: Emergency Medicine; Admitting Provider Surgery; Emergency Provider Emergency Medicine; Referring Provider Emergency Medicine; Visit Provider Surgery
PROC: 0DTJ4ZZ Resection of Appendix, Percutaneous Endoscopic Approach (ICD-10-PCS; CPT 44970; principal; 2024-06-29 14:30)
DX: K35.31 Acute appendicitis with localized peritonitis and gangrene, without perforation (principal); I48.91 Unspecified atrial fibrillation; I10 Essential (primary) hypertension; E78.5 Hyperlipidemia, unspecified; I25.2 Old myocardial infarction; Z79.01 Long term (current) use of anticoagulants
CPT/HCPCS: 36415; 74177; 80048; 80053; 81003; 81015; 83690; 85025; 85610; 93005; 96365; 96375; 99284; J0330; J1100; J1650; J1885; J2270; J2405; J2543; J2704; J3010; J3490; Q9967

== ENCOUNTER 2024-09-23 06:38 | Day surgery (SDC) | payer MEDICARE, OTHER, SELFPAY ==
[2024-06-27 21:10] VITALS: BMI 42.7
--- NOTE | 2024-09-23 | PATH_ITS ---
[facility] Accession Number: [id number] No. of containers..04 Tissue . 01 Material submitted: . PART A: gastrointestinal site - GASTRIC ANTRUM PART B: colon - ASCENDING COLON POLYP PART C: colon - DESCENDING COLON POLYP PART D: colon - SIGMOID COLON POLYP . 01 Diagnosis: A. GASTRIC ANTRUM, BIOPSY: Gastric antral mucosa with no diagnostic abnormality. No evidence of Helicobacter organisms on H/E stain. Negative for intestinal metaplasia. Negative for dysplasia or malignancy. . B. ASCENDING COLON POLYP: Tubular adenoma. . C. DESCENDING COLON POLYP: Tubular adenoma. . D. SIGMOID COLON POLYP: Hyperplastic polyp. [facility] 09/24/2024 1401 Local . 01 Electronically signed: . Mateus Gabriel MD, PhD, Pathologist NPI- [id number] . 01 Gross description: . Part A: GASTRIC ANTRUM: Received in formalin is 1 fragment(s) of bocanegra, soft tissue measuring 0.1 x 0.1 x 0.1 cm submitted entirely in 1 cassette(s) Part B: ASCENDING COLON POLYP: Received in formalin are 4 fragment(s) of bocanegra, soft tissue measuring 0.1 x 0.1 x 0.1 cm to 0.6 x 0.4 x 0.1 cm submitted entirely in 1 cassette(s) Part C: DESCENDING COLON POLYP: Received in formalin are 3 fragment(s) of bocanegra, soft tissue measuring 0.3 x 0.3 x 0.2 cm to 0.4 x 0.4 x 0.2 cm submitted entirely in 1 cassette(s) Part D: SIGMOID COLON POLYP: Received in formalin is 1 fragment(s) of bocanegra, soft tissue measuring 0.5 x 0.4 x 0.2 cm submitted entirely in 1 cassette(s) /YOLANDA 09/23/2024 2334 Local . 01 Pathologist provided ICD-10: R10.13, D12.2, D12.4 . 01 CPT . 580217, 068426, 885922, 278159 Specimen Comment: A courtesy copy of this report has been sent to [facility] Pathology Performed at: [address] [address], [place], [place] [id number] MD Clifford Grewal MD Phone: [phone]
[2024-09-23] MEDS: LACTATED RINGERS 1,000 ML 100 ML IV (07:23)
[2024-09-23 07:31] VITALS: BP 136/84; PULSE 63; RESP 16; TEMP 36.2; O2SAT 98
--- NOTE | 2024-09-23 07:36 | P.HP_ITS ---
History of Present Illness History of Present Illness Date Patient Seen: 09/23/24 Time Patient Seen: 07:36 Chief complaint: SDC Narrative: 64-year-old white male, morbidly obese, diabetes has had change in bowel habits and gastroesophageal reflux disease. Overdue for colon cancer screening. 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 Social History household members: spouse Smoking Status: Never smoker alcohol intake: never Meds Home Medications and Allergies Home Medications Medication Instructions Recorded Confirmed Type apixaban 5 mg tablet (Eliquis) 5 mg PO BID 06/27/24 09/22/24 History carvedilol 6.25 mg tablet 6.25 mg PO BID 06/27/24 09/22/24 History empagliflozin 10 mg tablet 10 mg PO DAILY 06/27/24 09/23/24 History (Jardiance) hydrochlorothiazide 12.5 mg capsule 12.5 mg PO QAM 06/27/24 09/22/24 History simvastatin 20 mg tablet 20 mg PO DAILY 06/27/24 09/22/24 History sotalol 160 mg tablet 160 mg PO BID 06/27/24 09/23/24 History valsartan 80 mg tablet 80 mg PO BID 06/27/24 09/22/24 History carvedilol 6.25 mg tablet 6.25 mg PO BID 09/23/24 09/23/24 History Allergies Allergy/AdvReac Type Severity Reaction Status Date / Time No Known Drug Allergies Allergy Verified 09/23/24 07:19 Review of Systems Review of Systems ROS: Yes All systems reviewed with the patient and are negative except as otherwise documented Exam Narrative Exam Narrative: Gen: NAD, sitting comfortably in bed, appears well HEENT: Sclera are anicteric, head is normocephalic and atraumatic, trachea is midline. 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 Patient agrees to proceed. Time-Based Coding :: [TOTAL MINUTES] spent with patient and on the chart (including review of chart, obtaining history, exam, reviewing outside data, placing orders, documenting exam and treatment plan, and counseling patient) on [DATE]. 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
--- NOTE | 2024-09-23 08:10 | PM.OP.EC ---
Operative Date/Time/Diagnoses Date of procedure: 09/23/24 Time of procedure: 08:11 Pre-op diagnosis: 1. Gastroesophageal reflux disease 2. Colon screening Post-op diagnosis: same Procedure & Clinicians Study performed: Esophagogastroduodenoscopy with biopsy Colonoscopy with cold snare polypectomy x3 Same procedure as scheduled: Yes Indications: Gastroesophageal reflux disease, colon screening Surgeon: Antwon Sanchez Procedure Notes SCOAP/Timeout: Performed Procedure in detail: Time-out was performed. Mac was induced. Patient was placed in left lateral decubitus position. Bite block was inserted. Gastroscope was inserted to the 2nd portion of the duodenal. Duodenal appeared normal. There was linear erosions of antral gastritis. Antral biopsies were obtained with cold forceps. Retroflexed view showed a small type 1 hiatal hernia. Z-line was normal and located 40 cm from the incisors. Esophagus was normal. Gastroscope was removed. The perineum was inspected without any gross abnormality. Lubricated pediatric colonoscope was inserted and advanced to the cecum. The terminal ileum was intubated. The colonoscope was withdrawn slowly inspecting the circumference of the colon. Polyps were detected in the ascending, descending and sigmoid colon. These were removed with cold snare polypectomy and retrieved. Very small polyps may have been missed, prep quality was adequate. Retroflexed view of the rectum showed small, non prolapsed nonbleeding internal hemorrhoids. The scope was withdrawn the patient was taken to PACU in good condition. Scope withdrawal time: 13 Findings: gastritis and polyp Specimen(s): other (1. Antral biopsy 2. Ascending colon polyp 3. Descending colon polyp 4. Sigmoid polyp) Complications: none Impression: Multiple benign-appearing polyps Post-procedure Recommendations: Colonscopy in 3 years Follow up: as needed Disposition: PACU
[2024-09-23 08:13] VITALS: BP 111/73; PULSE 58; RESP 17; TEMP 36.1; O2SAT 96
[2024-09-23 08:19] VITALS: BP 122/82; PULSE 53; RESP 14; TEMP 36.1; O2SAT 96
== END 2024-09-23 08:36 | disposition home or self-care (01) ==
PROVIDERS: PCP Family Medicine; Referring Provider Surgery; Visit Provider Surgery
PROC: 0DJ08ZZ Inspection of Upper Intestinal Tract, Via Natural or Artificial Opening Endoscopic (ICD-10-PCS; CPT 45385; principal; 2024-09-23 07:45)
PROC: 0DJD8ZZ Inspection of Lower Intestinal Tract, Via Natural or Artificial Opening Endoscopic (ICD-10-PCS; CPT 45378; 2024-09-23 07:45)
DX: Z12.11 Encounter for screening for malignant neoplasm of colon (principal); K21.9 Gastro-esophageal reflux disease without esophagitis; E66.9 Obesity, unspecified; E11.9 Type 2 diabetes mellitus without complications; Z79.01 Long term (current) use of anticoagulants; K44.9 Diaphragmatic hernia without obstruction or gangrene; D12.2 Benign neoplasm of ascending colon; D12.4 Benign neoplasm of descending colon; K63.5 Polyp of colon
CPT/HCPCS: 45385; 43239; J2704